=== PATIENT | female | born 1950 | race American Indian/Alaskan Native ===

== ENCOUNTER 2017-04-09 06:25 | Day surgery (SDC) | payer MEDICARE, BC ==
[2017-04-09] MEDS ORDERED: Propofol 10 mg/ml Inj (20 ML) ONE (08:27)
[2017-04-09 08:42] VITALS: O2SAT 100
[2017-04-09 09:42] VITALS: RESP 12
[2017-04-09 10:43] VITALS: BP 125/80; PULSE 74; TEMP 97
== END 2017-04-09 10:15 | disposition home or self-care (01) ==
LOC: C.ENDO 06:25
PROVIDERS: ATTEND Internal Medicine Gastroenterology
DX: Z12.11 Encounter for screening for malignant neoplasm of colon (principal); K63.89 Other specified diseases of intestine; K57.30 Diverticulosis of large intestine without perforation or abscess without bleeding; K64.1 Second degree hemorrhoids; K29.70 Gastritis, unspecified, without bleeding; I10 Essential (primary) hypertension; Z98.890 Other specified postprocedural states; Z90.49 Acquired absence of other specified parts of digestive tract; Z79.899 Other long term (current) drug therapy